=== PATIENT | male | born 1985 | race African-American/Black ===

== ENCOUNTER 2020-01-04 21:23 | Emergency (ER) | payer SELFPAY ==
[2020-01-04] MEDS ORDERED: NORMAL SALINE 1000 ML 1,000 ML IV ONE ×2 (21:40→22:24)
[2020-01-04] MEDS ORDERED: ONDANSETRON HCL INJ/PF 4 MG/2 ML SDV IV ONE (21:40)
[2020-01-04] MEDS ORDERED: FAMOTIDINE INJ/PF 20 MG/2 ML SDV IV ONE (21:40)
--- NOTE | 2020-01-04 21:41 | ER Document Report ---
ED Medical Screen (RME) - General Stated Complaint: POSSIBLE FOOD POISNING Time Seen by Provider: 01/04/20 21:40 Mode of Arrival: Ambulatory Information source: Patient Notes: 34-year-old male patient presents emergency department chief complaint of vomiting over the last 48 hours. Patient reports vomiting started after eating fast food. He reports that he was having some abdominal cramping but states abdominal cramping has now subsided. He has vomited at least 10 times today. He denies any fever or diarrhea. He does report recent travel from [place]. Abdomen soft, nontender. I have greeted and performed a rapid initial assessment of this patient. A comprehensive ED assessment and evaluation of the patient, analysis of test results and completion of the medical decision making process will be conducted by additional ED providers. I have specifically instructed the patient or family members with the patient to immediately return to any nursing staff should anything change in the patient's condition or with their chief complaint. - Related Data Allergies/Adverse Reactions: No Known Allergies Allergy (Unverified 01/04/20 21:37) Physical Exam - Vital signs Vitals: Temp Pulse Resp BP Pulse Ox 99.2 F 125 H 20 159/120 H 97 01/04/20 21:30 01/04/20 21:30 01/04/20 21:30 01/04/20 21:30 01/04/20 21:30 Course - Vital Signs Vital signs: Temp Pulse Resp BP Pulse Ox 99.2 F 125 H 20 159/120 H 97 01/04/20 21:30 01/04/20 21:30 01/04/20 21:30 01/04/20 21:30 01/04/20 21:30
[2020-01-04 22:26] LABS: ABSOLUTE LYMPHOCYTES (AUTO) 2.7 10^3/uL (0.5-4.7); ABSOLUTE MONOCYTES (AUTO) 1.7 10^3/uL (0.1-1.4); ABSOLUTE NEUT (AUTO) 10.3 10^3/uL (1.7-8.2); BASOPHILS % (AUTO) 0.2 % (0-2); HEMOGLOBIN 17.6 g/dL (13.5-17.0); LYMPHOCYTES % (AUTO) 18.3 % (13-45); MEAN CORPUSCULAR HGB CONC 34.4 g/dL (32.0-36.0); MEAN CORPUSCULAR VOLUME 87 fl (80-97); MONOCYTES % (AUTO) 11.4 % (3-13); PLATELET COUNT 223 10^3/uL (150-450); RED BLOOD COUNT 5.86 10^6/uL (4.35-5.55); RED CELL DISTRIBUTION WIDTH 14.6 % (11.5-14.0); SEGMENTED NEUTROPHILS % (AUTO) 70.1 % (42-78); TOTAL CELLS COUNTED % (AUTO) 100 %; WHITE BLOOD COUNT 14.7 10^3/uL (4.0-10.5)
[2020-01-04 22:42] LABS: ALBUMIN 5.1 g/dL (3.5-5.0); ALKALINE PHOSPHATASE 66 U/L (38-126); ANION GAP 14 (5-19); ASPARTATE AMINO TRANSFERASE 24 U/L (17-59); BILIRUBIN,DIRECT 0.1 mg/dL (0.0-0.4); BILIRUBIN,TOTAL 2.9 mg/dL (0.2-1.3); BLOOD UREA NITROGEN 23 mg/dL (7-20); CALCIUM 10.4 mg/dL (8.4-10.2); CARBON DIOXIDE 31 mmol/L (22-30); CHLORIDE 91 mmol/L (98-107); GLUCOSE 148 mg/dL (75-110); POTASSIUM 3.6 mmol/L (3.6-5.0)
[2020-01-04] MEDS ORDERED: DIAZEPAM INJ 10 MG/2 ML DISP.SYRIN IV ONE (23:11)
[2020-01-04] MEDS ORDERED: PROCHLORPERAZINE EDISYLATE INJ 10 MG/2 ML VIAL IV ONE (23:11)
[2020-01-04] MEDS ORDERED: CAPSAICIN 0.025% CREAM 60 GM TP ONE (23:12)
--- NOTE | 2020-01-04 23:18 | ER Document Report ---
ED General - General Chief Complaint: Nausea/Vomiting Stated Complaint: POSSIBLE FOOD POISNING Time Seen by Provider: 01/04/20 21:40 Mode of Arrival: Ambulatory - [facility] Notes: 34-year-old male history of marijuana abuse [place] with 3 days of numerous episodes of nonbloody nonbilious emesis associated initially with some epigastric abdominal discomfort which has since resolved and several bouts of hiccups. Hiccups has not been constant for several days but keep returning. Patient thinks he has food poisoning because he ate 5 guys before symptoms started and feels similar to prior food poisoning. Patient denies any fever, diarrhea, constipation, melena, bright red blood per rectum, hematemesis, sick contacts, headache, trauma, prior abdominal surgeries, prior GI issues, other drug use, family history - Related Data Allergies/Adverse Reactions: No Known Allergies Allergy (Unverified 01/04/20 21:37) Past Medical History - General Information source: Patient - Social History Smoking Status: Former Smoker Frequency of alcohol use: Social Drug Abuse: Marijuana Family History: Reviewed & Not Pertinent Patient has homicidal ideation: No Review of Systems - Review of Systems Notes: REVIEW OF SYSTEMS: CONSTITUTIONAL : Denies fever, chills, or sweats. EENT: Denies recent cold/sinus symptoms, denies throat pain CARDIOVASCULAR: Denies chest pain, JAVON RESPIRATORY: Denies cough, denies shortness of breath. GASTROINTESTINAL: + abdominal pain, +nausea/vomiting. GENITOURINARY: Denies difficulty urinating, painful urination. MUSCULOSKELETAL: Denies neck pain, back pain. SKIN: Denies rash or skin lesions. HEMATOLOGIC : Denies easy bruising or bleeding. LYMPHATIC: Denies swollen, enlarged glands. NEUROLOGICAL: Denies headache, denies change in gait. PSYCHIATRIC: Denies anxiety or stress or depression. Physical Exam - Vital signs Vitals: Temp Pulse Resp BP Pulse Ox 99.2 F 125 H 20 159/120 H 97 01/04/20 21:30 01/04/20 21:30 01/04/20 21:30 01/04/20 21:30 01/04/20 21:30 - Notes Notes: PHYSICAL EXAMINATION: GENERAL: Well-appearing, well-nourished, uncomfortable appearing with emesis bag at bedside but in no acute distress. HEAD: Atraumatic, normocephalic. EYES: Pupils equal round and appropriate constriction, sclera anicteric, conjunctiva are normal. ENT: nares patent, dry mucous membranes. NECK: Normal range of motion, supple without lymphadenopathy LUNGS: Breath sounds clear to auscultation bilaterally and equal. No wheezes rales or rhonchi. HEART: Regular rate and rhythm without murmurs. Heart rate 72 at time of my exam. ABDOMEN: Soft, nontender, no guarding, no masses, no CVAT EXTREMITIES: Normal range of motion, no pitting or edema. No cyanosis. NEUROLOGICAL: Awake, alert, conversing appropriately, moves all extremities spontaneously, no tremor no psychomotor agitation, no anxiety PSYCH: Normal mood, normal affect. SKIN: Warm, Dry, normal turgor, no rashes or lesions noted. Course - Re-evaluation Re-evalutation: 01/04/20 23:19 Likely acute gastroenteritis versus cannabinoid hyperemesis syndrome, r/o COVID. Small amount of blood now resolved, patient very well-appearing without any chest pain or abdominal pain, no respiratory symptoms, not consistent with [place], still tolerating p.o. Will obtain GI labs to rule out pancreatitis rule out significant electrolyte derangement. Initially significantly t achycardic on triage vitals, but resolved at time of my exam at which time patient had received approximately 300 mls of normal saline. Patient drinks alcohol frequently but no signs of alcohol withdrawal on exam or history. Hiccups frequent but not intractable, not consistent with mass lesion causing central hiccups. Will obtain COVID test, abdominal labs, hydration, antiemetics, capsaicin, and reassess. Likely discharge with PCP follow-up and return precautions. Smoking cessation advised. 01/05/20 00:37 Patient feels improved, hiccups now resolved. And ordered additional dose of diazepam but patient did not require it so was not given. Hiccups are non- intractable in the lead 2 days, instructed patient to follow-up with primary doctor especially if hiccups continue for investigation of possible other dangerous causes, but no emergent need to do so in the ED. Patient passed p.o. trial in the ED. Will discharge with a few doses of Reglan and capsaicin and PCP follow-up. Given extensive return to ED precautions which patient demonstrated understanding of. Patient with multiple lab abnormalities but are consistent with acute vomiting and do not require emergent investigation. Gave patient a copy of all his lab results to bring to his follow-up with primary doctor. Encouraged p.o. hydration. - Vital Signs Vital signs: Temp Pulse Resp BP Pulse Ox 99.2 F 125 H 20 159/120 H 100 01/04/20 21:38 01/04/20 21:30 01/05/20 00:00 01/04/20 21:30 01/05/20 00:00 - Laboratory Result Diagrams: 01/04/20 22:17 01/04/20 22:17 Laboratory results interpreted by me: 01/04/20 01/04/20 22:17 22:17 WBC 14.7 H RBC 5.86 H Hgb 17.6 H RDW 14.6 H Absolute Neuts (auto) 10.3 H Absolute Monos (auto) 1.7 H Sodium 135.7 L Chloride 91 L Carbon Dioxide 31 H BUN 23 H Glucose 148 H Calcium 10.4 H Total Bilirubin 2.9 H Total Protein 9.0 H Albumin 5.1 H Discharge - Discharge Clinical Impression: Abnormal laboratory test result Vomiting Qualifiers: Vomiting type: unspecified Vomiting Intractability: non-intractable Nausea presence: with nausea Qualified Code(s): R11.2 - Nausea with vomiting, u nspecified Condition: Good Disposition: HOME, SELF-CARE Additional Instructions: Antinausea Medication You have been given a medication to suppress nausea and vomiting. This type of medication can be given as a shot, pill, or suppository. It will usually last for many hours. Pills and shots usually last six to eight hours, suppositories last about 12 hours. For the typical illness, only one or two doses of the m edication may be necessary. Mild lightheadedness may occur. This type of medicine can cause dr owsinjoao. Do not drive or operate dangerous machinery while under its influence. Do not mix with alcohol. See your doctor at once if you have muscle spasms or tightness, or uncontrollable motions (particularly of the neck, mouth, or jaw). Persistent vomiting or severe lightheadedness should also be evaluated by the physician. Vomiting Vomiting (or nausea without vomiting) can be caused by many other different problems. It can mean that something's wrong with the stomach, such as ulcers or inflammation or the intestinal tract, such as appendicitis. But it can also be a symptom of a problem that has nothing to do with the stomach or intestines. Vomiting is common with severe headaches, earaches, tonsillitis, and kidney infections, etc. We see it with pneumonia or heart attacks. Drugs can cause nausea and vomiting. Many abdominal problems cause vomiting; for example, gallstones, kidney stones, pancreatitis, and intestinal obstruction (blocked bowels). In most cases, curing the vomiting depends on fixing the problem that caused it. For temporary relief, we may use an anti-nausea medicine. For home use, we can prescribe suppositories, chewable pills, pills that dissolve in the mouth, or liquid anti-nausea drugs. If the vomiting seems to be caused by a problem in the stomach, acid-suppressing drugs may be prescribed as well. It's important to avoid dehydration. Sip small amounts of clear liquids (soft drinks, tea, broth, etc) . Try to take fluids frequently even if you are vomiting to prevent dehydration. Take increasing amounts of fluid and when liquids are being consumed successfully, advance to small amounts of bland food (toast, soups, mashed potatoes, etc.) until you are able to resume a regular diet. Avoid aspirin, tobacco, and alcohol. If the vomiting worsens, if the problem that's making you vomit worsens, or if there's evidence of bleeding in the stomach (such as black, tarry stool, or bloody or black vomit), you should return immediately. Also, return if abdominal pain worsens or becomes localized to one area or you develop high fever. Call your doctor if you aren't improved in 24 hours. Return to ED immediately if you have additional blood in vomit, dizziness, fainting, return of abdominal pain, or any other worsening or alarming symptoms. Your blood pressure was high in the ED at 159/120, he should have it rechecked with your primary doctor to make sure thatyou are not developing high blood pressure a condition that can cause heart attack, stroke, and . You had multiple abnormalities on your lab tests, bring the printout of these tests when you follow-up with your primary doctor. You could have been underlying disease that is dangerous but that needs to be further investigated the doctor's office instead of the emergency department. Prescriptions: Capsaicin [Arthritis Pain Relief] 42.5 gm TP Q6HP PRN #45 cream..g. PRN Reason: Metoclopramide HCl [Reglan 10 mg Tablet] 10 mg PO TIDP PRN #6 tablet PRN Reason:
[2020-01-04] MEDS ORDERED: CAPSAICIN 0.025% CREAM 60 GM ONE (23:52)
--- NOTE | 2020-01-05 00:18 | RADIOLOGY REPORT (SQ) ---
EXAM DESCRIPTION: X-RAY CHEST- TWO VIEWS CLINICAL HISTORY: Severe hiccups COMPARISON: None available TECHNIQUE: 2 views of the chest FINDINGS: There are overlying EKG leads. There are no discrete air space infiltrates, pneumothoraces or pleural effusions. The pulmonary vascularity is normal. The cardiomediastinal silhouette is normal in size. No suspicious lytic or blastic osseous lesions are identified. IMPRESSION: There are no acute lung parenchymal findings.
[2020-01-05] MEDS ORDERED: DIAZEPAM INJ 10 MG/2 ML DISP.SYRIN IV ONE (00:24)
[2020-01-05 01:26] VITALS: BP 145/95
== END 2020-01-05 01:32 | disposition home or self-care (01) ==
LOC: ER 21:23
DX: R11.2 Nausea with vomiting, unspecified (principal); F12.10 Cannabis abuse, uncomplicated; R06.6 Hiccough; R00.0 Tachycardia, unspecified; Z87.891 Personal history of nicotine dependence; Z20.818 Contact with and (suspected) exposure to other bacterial communicable diseases
CPT/HCPCS: 99284; 96361; 96374; 96375; 36415; 83690; 85025; 80053; 71046; J3360; J3490; J0780; J2405; J7030; S0028